=== PATIENT | male | born 1995 | race African-American/Black ===

== ENCOUNTER 2018-12-23 11:21 | Emergency (ER) | payer OTHER ==
[~2018-12-23] VITALS: Ht 175.3 cm; Wt 103.9 kg
[2018-12-23] MEDS ORDERED: IBUP-1022 PO (11:28)
[2018-12-23] MEDS ORDERED: NORCO, ANEXSIA 5/325MG TABLET (HYDROcodone/ACETAMINOPHEN) PO ONE (13:30)
[2018-12-23] MEDS ORDERED: NORC1TAB7 PO (13:35)
[2018-12-23 13:41] VITALS: BP 149/90
== END 2018-12-23 13:47 | disposition home or self-care (01) ==
LOC: M ED 11:21
DX: S86.111A Strain of other muscle(s) and tendon(s) of posterior muscle group at lower leg level, right leg, initial encounter (principal); X50.1XXA Overexertion from prolonged static or awkward postures, initial encounter; Y92.139 Unspecified place military base as the place of occurrence of the external cause; Y93.02 Activity, running; Y99.1 Military activity